=== PATIENT | male | born 1970 | race Caucasian/White ===

== ENCOUNTER 2017-03-05 09:55 | Inpatient (IN) | payer OTHER ==
[~2017-03-05] VITALS: Ht 175.3 cm; Wt 87.8 kg
[2017-03-05] VITALS (28 sets, daily range): BP systolic 96–141; BP diastolic 49–69; PULSE 57–86; RESP 7–22; Ht 175.3 cm; Wt 87.8 kg
--- NOTE | 2017-03-05 00:04 | HP ---
DATE OF ADMISSION: 03/05/2017 HISTORY OF PRESENT ILLNESS: The patient is approximately 46 years of age male who was originally se en in the office for evaluation of low back pain with pain radiating to both of his lower extremitie s with tingling in the left lower extremity. He denied any urinary or bowel dysfunction. The patie nt was diagnosed with L5-S1 grade I spondylolisthesis. Conservative management was offered in the f orm of physical therapy, which the patient has failed. The patient received pain management, which he failed. He ultimately also received epidural injections in the lumbar spine which did not help, and he continued to complain of low back pain with pain radiating to both of his lower extremities. The patient wanted something more definite if could be done. Surgical intervention was discussed w ith the patient in the form of lumbar L5-S1 laminectomy with possible interbody and posterolateral f usion with possible instrumentation. The patient has agreed and wanted to proceed with surgical int ervention. PAST MEDICAL HISTORY: Per chart. SURGICAL HISTORY: Unremarkable. SOCIAL HISTORY: Denies use of drugs, alcohol, tobacco. ALLERGIES: PER CHART. MEDICATIONS: Taken at home per chart. FAMILY HISTORY: Unremarkable. REVIEW OF SYSTEMS: Additional 10-point review of systems conducted. Pertinent positives stated in HPI, otherwise negative. PHYSICAL EXAMINATION: GENERAL: The patient in bed, awake, alert, oriented, follows commands appropriately. HEENT: Head is atraumatic, normocephalic. Eyes: Sclerae clear, nonicteric. EOMs intact. Pupils equal, reactive. No cyanosis. Mouth: No lesions, no bleeding. NECK: Supple. No thyromegaly, no JVD, no accessory muscle usage. PULMONARY: No dyspnea, no tachypnea. CARDIOVASCULAR: No JVD. No pedal edema. ABDOMEN: Soft without guarding. PERIPHERAL VASCULAR: No edema, no swelling. NEUROLOGIC: He is awake, alert, oriented, follows commands properly. GCS 15. Upper extremity exam ination: He has equal strength in both of his upper extremities as well as the deltoids, biceps, tr iceps, wrist extensors, flexors as well as intrinsic and extrinsic hand muscles. Lower extremity ex amination: Upon flexion, extension of the lumbar spine, the patient develops low back pain. Moving his hips causes him to experience low back pain, and he has equal strength in both sides. No posit carline leg raise noted. Sensation is intact throughout. IMAGING: MRI dated 01/21/2017 of the lumbar spine shows L5-S1 grade I retrolisthesis with left-side d neural foraminal stenosis. RECOMMENDATION: At this point is for patient to undergo surgical intervention. Complications of lucas rgery were discussed with the patient including infection, permanent nerve damage, bleeding, complic ation with anesthesia including stroke, heart attack, even . The patient has agreed and wants to proceed. Preop was performed by the patient's primary physician. The patient has been cleared f or surgical intervention, will be admitted to the hospital thereafter for further care and managemen t. Thank you again for the consultation. The patient was seen and examined, discussed with Dr. Allan . Dictated By: JALIL LORENZANA for SHIRA EVANS/NATALIIA Conf#: [id number] DID#: [id number]
[2017-03-05] MEDS ORDERED: PHEN200C PO (10:28)
[2017-03-05] MEDS ORDERED: GABA300C16 PO (10:29)
[2017-03-05] MEDS ORDERED: IBUP800T25 PO (10:29)
[2017-03-05] MEDS ORDERED: SERT100T PO (10:30)
[2017-03-05] MEDS ORDERED: LEVE10006 PO (10:30)
[2017-03-05] MEDS ORDERED: LISI20TA11 PO (10:31)
[2017-03-05] MEDS ORDERED: ARIP15TA2 PO (10:31)
[2017-03-05] MEDS ORDERED: PRAZ2CAP2 PO (10:32)
[2017-03-05] MEDS ORDERED: ASPI81TA16 PO (10:32)
[2017-03-05] MEDS ORDERED: GELATIN SIZE 100 SPONGE ONE (11:10)
[2017-03-05] MEDS ORDERED: LIDOCAINE 0.5%/EPI (MDV) 50 ML INJ ONE (11:11)
--- NOTE | 2017-03-05 11:11 | HPN ---
Date/Time of Note Date/Time of Note DATE: 03/05/17 TIME: 11:11 Interval H&P Admission Note Pt. seen H&P reviewed: No system changes JALLI BHATIA PA-C March 05, 2017 11:11
[2017-03-05] MEDS ORDERED: THROMBIN 5000 UNIT VIAL ONE (11:12)
[2017-03-05] MEDS ORDERED: POLYMYXIN/BACITRACIN 1L IRRIG ONE (11:16)
--- NOTE | 2017-03-05 11:22 | HPN ---
Date/Time of Note Date/Time of Note DATE: 03/05/17 TIME: 11:22 Interval H&P Admission Note Pt. seen H&P reviewed: No system changes JALIL BHATIA PA-C March 05, 2017 11:22
[2017-03-05] MEDS ORDERED: ROCURONIUM 50 MG INJ ONE (11:25)
[2017-03-05] MEDS ORDERED: PROPOFOL 20 ML ONE (11:25)
[2017-03-05] MEDS ORDERED: NEOSTIGMINE 3 MG/3 ML SYRINGE ONE (11:25)
[2017-03-05] MEDS ORDERED: CEFAZOLIN 1 GM INJ ONE (11:25)
[2017-03-05] MEDS ORDERED: ONDANSETRON 4 MG INJ ONE (11:26)
[2017-03-05] MEDS ORDERED: DEXAMETHASONE 4 MG/ML 1 ML INJ ONE (11:26)
[2017-03-05] MEDS ORDERED: MIDAZOLAM 1 MG/ML 2 ML INJ ONE (11:26)
[2017-03-05] MEDS ORDERED: LIDOCAINE 0.5%/EPI (MDV) 50 ML INJ INJ ONE (12:00)
[2017-03-05] MEDS ORDERED: POLYMYXIN/BACITRACIN 1L IRRIG IRR ONE (12:00)
[2017-03-05] MEDS ORDERED: hydrALAzine 20 MG INJ ONE (12:03)
[2017-03-05] MEDS ORDERED: LABETALOL HCL 20MG INJ ONE (12:26)
[2017-03-05] MEDS ORDERED: THROMBIN 5000 UNIT VIAL TOP ONE (12:41)
[2017-03-05] MEDS ORDERED: hydrALAzine 20 MG INJ IV PRN (13:00)
[2017-03-05] MEDS ORDERED: EPHEDrine SULFATE 50 MG/5 ML SYG IV PRN (13:00)
[2017-03-05] MEDS ORDERED: MIDAZOLAM 1 MG/ML 2 ML INJ IV PRN (13:00)
[2017-03-05] MEDS ORDERED: MEPERIDINE 25 MG INJ IV PRN (13:00)
[2017-03-05] MEDS ORDERED: FENTAnyl 50 MCG/ML VIAL IV PRN ×3 (13:00)
[2017-03-05] MEDS ORDERED: ONDANSETRON 4 MG INJ IV PRN (13:00)
[2017-03-05] MEDS ORDERED: HYDROmorphONE (0.2 MG/ML) 10ML SYG IV PRN ×3 (13:00)
[2017-03-05] MEDS ORDERED: TRIMETHOBENZAMIDE 100 MG/ML VIAL IM PRN (13:00)
[2017-03-05] MEDS ORDERED: DIPHENHYDRAMINE 50 MG INJ IV PRN (13:00)
[2017-03-05] MEDS ORDERED: LABETALOL HCL 20MG INJ IV PRN (13:00)
[2017-03-05 15:06] LABS: ADD UMIC YES; URINE BILIRUBIN (Dip) NEGATIVE (NEGATIVE); URINE BLOOD (Dip) 1+ (NEGATIVE); URINE COLOR LT. YELLOW (YELLOW); URINE GLUCOSE (Dip) NEGATIVE (NEGATIVE); URINE KETONES (Dip) NEGATIVE (NEGATIVE); URINE LEUKOCYTE ESTERASE (Dip) NEGATIVE (NEGATIVE); URINE NITRITE (Dip) NEGATIVE (NEGATIVE); URINE TOTAL PROTEIN (Dip) NEGATIVE (NEGATIVE); URINE UROBILINOGEN (Dip) 0.2 E.U./dL (0.1-1.0)
[2017-03-05 15:26] LABS: URINE RBCS 0-2 /HPF (0)
[2017-03-05] MEDS: morphine 2 MG INJ IV PRN ×2 (17:13→20:31)
[2017-03-05] MEDS: NICOTINE (21 MG/24 HR) PATCH TRANSDERM SCH (18:01)
[2017-03-05] MEDS: CEFAZOLIN 1 GM/50 ML (PMX) 50 ML IVPB SCH (18:01)
[2017-03-05] MEDS: HYDROCODONE/APAP (10/325) TAB PO PRN ×2 (18:38→22:34)
[2017-03-05] MEDS: ONDANSETRON 4 MG INJ IV PRN (18:46)
[2017-03-05] MEDS ORDERED: IBUPROFEN 800 MG TAB PO PRN (19:30)
[2017-03-05] MEDS: GABAPENTIN 300 MG CAP PO SCH (20:33)
[2017-03-05] MEDS: SERTRALINE 100 MG TAB PO SCH (20:33)
[2017-03-05] MEDS: LEVETIRACETAM 500 MG TAB PO SCH (20:33)
[2017-03-05] MEDS: PRAZOSIN 1 MG CAP PO SCH (21:12)
[2017-03-05] MEDS: PHENYTOIN 100 MG CAP PO SCH (21:13)
[2017-03-06] MEDS: DEXTROSE 5%-LR 1,000 ML IV SCH ×2 (00:33→13:20)
[2017-03-06] MEDS: morphine 2 MG INJ IV PRN ×6 (00:34→23:43)
[2017-03-06] MEDS: CEFAZOLIN 1 GM/50 ML (PMX) 50 ML IVPB SCH ×2 (01:54→08:39)
--- NOTE | 2017-03-06 03:32 | HP ---
DATE OF ADMISSION: 03/05/2017 CHIEF COMPLAINT AND HISTORY OF PRESENT ILLNESS: The patient is a 46-year-old gentleman with a histo ry of schizoaffective disorder and seizure disorder who had been seen by Dr. Allan as an outpatien t because of lower back pain radiating to both lower extremities. The patient also has tingling in the left lower extremity. The patient underwent MRI of the LS spine which revealed L5-S1 grade I la teral listhesis and left-sided neural foraminal stenosis. The patient prior to surgery did not have any bladder or bowel incontinence or any motor weakness. The patient underwent [facility] physical therapy, but did not have any significant improvement in his symptom, and therefore the decision was made to do surgical intervention. The patient was brought into hospital today and the patient underwent a L5-S1 laminectomy. The patient does have significant postoperative pain, de nies any chest pain or shortness of breath. No recent breakthrough seizures. No history of fever o r chills. No history of cough, headache, dizziness, syncope. No history of leg edema. The patient , prior to surgery, did not have any bladder or bowel incontinence or any motor weakness in any extr emity. PAST SURGICAL HISTORY: None. ALLERGIES: NONE. SOCIAL HISTORY: The patient smokes 2.5 packs of cigarettes per day. No significant alcohol abuse. PHYSICAL EXAMINATION: GENERAL: The patient is conscious, awake and alert. VITAL SIGNS: Temperature 97.8, pulse 79, respiration 18, blood pressure 120/65, O2 saturation 98% o n 2 liters nasal cannula. HEENT: No eye discharge or redness. Extraocular movements intact. Oropharynx clear. NECK: No mass. CHEST: Fairly clear. CARDIOVASCULAR: S1, S2 normal. No murmur. ABDOMEN: Soft, nondistended, nontender. Bowel sounds present. EXTREMITIES: No leg edema. NEUROLOGIC: The patient is awake, alert with no focal neurological deficit, although the exam was l imited due to recent surgery. IMPRESSION: 1. L5-S1 grade I retrolisthesis with left-sided neural foraminal stenosis status post laminectomy. 2. Schizoaffective disorder. 3. Seizure disorder. PLAN: The patient will be continued on Dilantin and Keppra for his seizure and will continue Zyprex a and multiple psych medication as he had been taking at home including Zoloft. Postop surgical car e as per Dr. Allan. Will continue SCD for DVT prophylaxis. The patient was taking aspirin prior to surgery, will hold off for now. The patient will undergo PT evaluation in the morning. Further recommendation will depend on patient's hospital course. Dictated By: MANUEL BARCENAS/NATALIIA Conf#: [id number] DID#: [id number]
[2017-03-06 04:55] LABS: ADD SCAN DIFF NO
[2017-03-06 04:58] LABS: BASOPHILS % 0.2 % (0.0-2.0); EOSINOPHILS % 0.1 % (0.0-7.0); HEMATOCRIT 34.5 % (42.0-52.0); HEMOGLOBIN 12.1 g/dl (14.0-18.0); LYMPHOCYTES # 1.9 10^3/ul (0.8-2.9); LYMPHOCYTES % 10.9 % (15.0-51.0); MEAN CORPUSCULAR HEMOGLOBIN 34.1 pg (29.0-33.0); MEAN CORPUSCULAR HGB CONC 35.1 g/dl (32.0-37.0); MEAN CORPUSCULAR VOLUME 97.2 fl (82.0-101.0); MONOCYTE # 1.1 10^3/ul (0.3-0.9); NEUTROPHIL # 14.7 10^3/ul (1.6-7.5); NEUTROPHILS % 82.4 % (39.0-77.0); PLATELET COUNT 196 10^3/UL (140-415); RED BLOOD COUNT 3.55 10^6/ul (4.70-6.10); RED CELL DISTRIBUTION WIDTH 11.9 % (11.5-14.5); WHITE BLOOD COUNT 17.8 10^3/ul (4.8-10.8)
[2017-03-06 05:30] LABS: ALBUMIN 3.4 g/dl (3.3-4.9); POTASSIUM 3.9 mmol/L (3.5-5.1)
[2017-03-06 05:32] LABS: CREATININE 0.84 mg/dl (0.61-1.24)
[2017-03-06 05:33] LABS: ALBUMIN/GLOBULIN RATIO 1.3; BILIRUBIN,INDIRECT 0.2 mg/dl (0-1.1); BILIRUBIN,TOTAL 0.2 mg/dl (0.2-1.3)
[2017-03-06 05:34] VITALS: BP 111/53; PULSE 60; RESP 18
[2017-03-06 05:34] LABS: CALCIUM 8.7 mg/dl (8.4-10.2)
[2017-03-06] MEDS: GABAPENTIN 300 MG CAP PO SCH ×2 (08:33→20:13)
[2017-03-06] MEDS: ARIPIPRAZOLE 5 MG TAB PO SCH (08:33)
[2017-03-06] MEDS: PHENYTOIN 100 MG CAP PO SCH ×2 (08:34→20:13)
[2017-03-06] MEDS: NICOTINE (21 MG/24 HR) PATCH TRANSDERM SCH (08:34)
[2017-03-06] MEDS: LEVETIRACETAM 500 MG TAB PO SCH ×2 (08:34→20:13)
[2017-03-06] MEDS: LISINOPRIL 20 MG TAB PO SCH (08:36)
--- NOTE | 2017-03-06 11:03 | RADRPT ---
PROCEDURE: Intraoperative imaging of the lumbar spine with fluoroscopy. CLINICAL INDICATION: Back pain. Intraoperative. TECHNIQUE: 6 images of the lumbar spine were obtained in the operating room with an image intensif ier. No radiologist was in attendance. 19.5 seconds of fluoroscopy time was used. COMPARISON: No prior study is available for comparison. FINDINGS: For the purposes of this report, the last apparent true disc level is considered to be L5-S1. Based on this, images demonstrate posterior fusion with pedicle screws and connecting rods at L5 and S1. IMPRESSION: 1. Intraoperative imaging of the lumbar spine. RPTAT: QQ .Nolan Pappas MD, MD Date Time Electronically viewed and signed by .Nolan Pappas MD, on 03/06/2017 11:03 .R/
[2017-03-06] MEDS: HYDROCODONE/APAP (10/325) TAB PO PRN (11:49)
--- NOTE | 2017-03-06 12:03 | PN ---
DATE: 03/06/2017 SUBJECTIVE: Follow up on surgery for L5-S1 grade I retrolisthesis, with left-sided neural foraminal stenosis, schizoaffective affective disorder and seizure disorder. Patient denied any chest pain. Postoperative pain continues. Will increase the patient's [place] to 1 to 2 q.4 p.r.n. The patient d enied any chest pain or shortness of breath. PHYSICAL EXAMINATION: GENERAL: The patient is conscious, awake, alert. VITAL SIGNS: Temperature 97.9, pulse 60, respirations 18, blood pressure 111/53, O2 saturation 96% on 2 liters nasal cannula. HEENT: No eye discharge or redness. Nose and ears normal. NECK: No mass, no JVD. CHEST: Fairly clear. CARDIOVASCULAR: S1, S2 normal. No murmur. ABDOMEN: Soft, nondistended, nontender. EXTREMITIES: No leg edema. Pedal pulses are palpable. SKIN: Without rash. LABORATORY: WBC 17.8, hemoglobin 12.1, platelets 106. Chemistry unremarkable. PLAN: Will continue the current medications, including Dilantin and Keppra, for seizures and all of the psych medications. Will do follow up labs in the morning. Dictated By: MANUEL BARCENAS/NATALIIA Conf#: [id number] DID#: [id number]
--- NOTE | 2017-03-06 14:46 | PN ---
Date/Time of Note Date/Time of Note DATE: 03/06/17 TIME: 14:45 Assessment/Plan Lines/Catheters IV Catheter Type (from Nrs): Peripheral IV Echeverria in Place (from Nrs): Yes Assessment/Plan Assessment/Plan POD1 ALERT MOVES ALL DRAIN FXNAL CONT WITH DRAIN PT AND OT Exam/Review of Systems Vital Signs Vitals Vital Signs Date Time Temp Pulse Resp B/P Pulse Ox O2 Delivery O2 Flow Rate FiO2 03/06/17 05:34 97.9 60 18 111/53 96 Nasal Cannula 2.0 Intake and Output 03/05/17 03/05/17 03/06/17 15:00 23:00 07:00 Intake Total 2620 ml 290 ml 1050 ml Output Total 650 ml 750 ml 4660 ml Balance 1970 ml -460 ml -3610 ml Results Result Diagram: 03/06/17 0415 03/06/17 0415 SHIRA PATTON MD March 06, 2017 14:46
[2017-03-06 19:00] VITALS: BP 111/51; RESP 18
[2017-03-06] MEDS: SERTRALINE 100 MG TAB PO SCH (20:13)
[2017-03-06] MEDS: PRAZOSIN 1 MG CAP PO SCH (20:16)
[2017-03-06] MEDS: HYDROCODONE/APAP (5/325) TAB PO PRN (20:59)
[2017-03-07] MEDS: HYDROCODONE/APAP (5/325) TAB PO PRN ×5 (05:11→22:33)
[2017-03-07 05:44] LABS: ADD SCAN DIFF NO
[2017-03-07 05:54] LABS: BASOPHILS % 0.3 % (0.0-2.0); EOSINOPHILS # 0.1 10^3/ul (0.0-0.5); EOSINOPHILS % 0.6 % (0.0-7.0); HEMATOCRIT 36.2 % (42.0-52.0); HEMOGLOBIN 12.1 g/dl (14.0-18.0); LYMPHOCYTES # 2.2 10^3/ul (0.8-2.9); LYMPHOCYTES % 15.6 % (15.0-51.0); MEAN CORPUSCULAR HEMOGLOBIN 32.9 pg (29.0-33.0); MEAN CORPUSCULAR HGB CONC 33.4 g/dl (32.0-37.0); MEAN CORPUSCULAR VOLUME 98.4 fl (82.0-101.0); MEAN PLATELET VOLUME 11.3 fl (7.4-10.4); MONOCYTE # 1.3 10^3/ul (0.3-0.9); MONOCYTES % 9.1 % (0.0-11.0); NEUTROPHIL # 10.5 10^3/ul (1.6-7.5); PLATELET COUNT 172 10^3/UL (140-415); RED BLOOD COUNT 3.68 10^6/ul (4.70-6.10); RED CELL DISTRIBUTION WIDTH 11.9 % (11.5-14.5); WHITE BLOOD COUNT 14.1 10^3/ul (4.8-10.8)
[2017-03-07 07:27] VITALS: BP 118/59; RESP 19
[2017-03-07 08:00] VITALS: BP 109/52; RESP 20
[2017-03-07] MEDS: GABAPENTIN 300 MG CAP PO SCH ×2 (08:53→20:22)
[2017-03-07] MEDS: NICOTINE (21 MG/24 HR) PATCH TRANSDERM SCH (08:53)
[2017-03-07] MEDS: LEVETIRACETAM 500 MG TAB PO SCH ×2 (08:53→20:21)
[2017-03-07] MEDS: ARIPIPRAZOLE 5 MG TAB PO SCH (08:53)
[2017-03-07] MEDS: PHENYTOIN 100 MG CAP PO SCH ×2 (08:53→20:22)
[2017-03-07] MEDS: LISINOPRIL 20 MG TAB PO SCH (08:54)
[2017-03-07] MEDS: morphine 2 MG INJ IV PRN (12:22)
--- NOTE | 2017-03-07 16:00 | PN ---
Date/Time of Note Date/Time of Note DATE: 03/07/17 TIME: 15:55 Assessment/Plan VTE Prophylaxis VTE Prophylaxis Intervention: SCD's Lines/Catheters IV Catheter Type (from Nrsg): Saline Lock Urinary Cath still in place: Yes Reason Cath still needed: urinary retention Assessment/Plan Assessment/Plan 1. L5-S1 grade I retrolisthesis with left-sided neural foraminal stenosis status post laminectomy. Continue to follow-up surgical recommendation. Rosie as needed for pain. Continue physical therapy. 2. Schizoaffective disorder. 3. Seizure disorder. Continue Keppra. 4. Hypertension continue lisinopril. Further recommendations based on clinical course. Plan of care discussed with Dr. Cho. Subjective 24 Hr Interval Summary Free Text/Dictation Patient's complains of back pain, incision is dry clean and intact with a drain with serous fluid, patient was able to walk with physical therapy in the hallway, remains afebrile. Exam/Review of Systems Vital Signs Vitals Vital Signs Date Time Temp Pulse Resp B/P Pulse Ox O2 Delivery O2 Flow Rate FiO2 03/07/17 08:00 98.6 70 20 109/52 95 03/06/17 05:34 Nasal Cannula 2.0 Intake and Output 03/06/17 03/06/17 03/07/17 15:00 23:00 07:00 Intake Total 610 ml 1740 ml 1200 ml Output Total 3600 ml 1600 ml Balance 610 ml -1860 ml -400 ml Exam Constitutional: alert, oriented Psych: no complaints Head: atraumatic, normocephalic Eyes: nl conjunctiva ENMT: nl external ears & nose Neck: non-tender, supple Respiratory: clear to auscultation, normal air movement Cardiovascular: nl pulses, regular rate and rhythm Gastrointestinal: non-tender, soft Musculoskeletal: nl extremities to inspection, other (Status post surgery with lower back surgical incision was dry clean and intact dressing and drain) Extremities: normal pulses Neurological: UND[employer]TER [employer] II-XII intact Skin: nl turgor Lymph: nl lymph nodes Results Result Diagram: 03/07/17 0450 03/06/17 0415 Results 24 hrs Laboratory Tests Test 03/07/17 04:50 White Blood Count 14.1 #H Red Blood Count 3.68 L Hemoglobin 12.1 L Hematocrit 36.2 L Mean Corpuscular Volume 98.4 Mean Corpuscular Hemoglobin 32.9 Mean Corpuscular Hemoglobin Concent 33.4 Red Cell Distribution Width 11.9 Platelet Count 172 Mean Platelet Volume 11.3 H Neutrophils % 74.0 Lymphocytes % 15.6 Monocytes % 9.1 Eosinophils % 0.6 Basophils % 0.3 Nucleated Red Blood Cells % 0.0 Neutrophils # 10.5 H Lymphocytes # 2.2 Monocytes # 1.3 H Eosinophils # 0.1 Basophils # 0.0 Nucleated Red Blood Cells # 0.0 Medications Medications Current Medications Ondansetron HCl (Zofran Inj) 4 mg Q6H PRN IV NAUSEA AND/OR VOMITING Last administered on 03/05/17 18:46; Admin Dose 4 MG; Start 03/05/17 at 11:30 Acetaminophen/ Hydrocodone Bitart (Rosie (10325)) 1 tab Q4H PRN PO PAIN Last administered on 03/06/17 11:49; Admin Dose 1 TAB; Start 03/05/17 at 11:30 Morphine Sulfate (morphine) 2 mg Q3H PRN IV severe pain Last administered on 12:22; Admin Dose 2 MG; Start 03/05/17 at 11:30 Nicotine (Nicoderm 21 Mg/ 24hr) 1 patch DAILY TRANSDERM Last administered on 08:53; Admin Dose 1 PATCH; Start 03/05/17 at 17:30 Aripiprazole (Abilify) 15 mg DAILY PO Last administered on 03/07/17 08:53; Admin Dose 15 MG; Start 03/06/17 at 09:00 Gabapentin (Neurontin) 300 mg BID PO Last administered on 03/07/17 08:53; Admin Dose 300 MG; Start 03/05/17 at 21:00 Ibuprofen (Motrin) 800 mg BID PRN PO PAIN; Start 03/05/17 at 19:30 Levetiracetam (Keppra) 2,000 mg BID PO Last administered on 03/07/17 08:53; Admin Dose 2,000 MG; Start 03/05/17 at 21:00 Lisinopril (Zestril) 20 mg DAILY PO ; Start 03/06/17 at 09:00 Phenytoin (Dilantin) 200 mg BID PO Last administered on 03/07/17 08:53; Admin Dose 200 MG; Start 03/05/17 at 21:00 Prazosin HCl (Minipres) 2 mg HS PO Last administered on 03/06/17 20:16; Admin Dose 2 MG; Start 03/05/17 at 21:00 Sertraline HCl (Zoloft) 100 mg QHS PO Last administered on 03/06/17 20:13; Admin Dose 100 MG; Start 03/05/17 at 21:00 Acetaminophen/ Hydrocodone Bitart (Rosie (5/325)) 2 tab Q4H PRN PO MODERATE PAIN LEVEL 4-6 Last administered on 03/07/17 14:56; Admin Dose 2 TAB; Start 03/06 at 12:00 [facility]OTT March 07, 2017 16:00
[2017-03-07 19:59] VITALS: BP 130/72; PULSE 74; RESP 18
[2017-03-07] MEDS: SERTRALINE 100 MG TAB PO SCH (20:21)
[2017-03-07] MEDS: PRAZOSIN 1 MG CAP PO SCH (20:22)
[2017-03-07] MEDS: ONDANSETRON 4 MG INJ IV PRN (20:38)
[2017-03-08] MEDS: HYDROCODONE/APAP (5/325) TAB PO PRN ×4 (04:51→22:25)
[2017-03-08 05:07] LABS: ADD SCAN DIFF NO
[2017-03-08 05:13] LABS: BASOPHILS % 0.2 % (0.0-2.0); EOSINOPHILS # 0.1 10^3/ul (0.0-0.5); EOSINOPHILS % 0.8 % (0.0-7.0); HEMATOCRIT 35.9 % (42.0-52.0); HEMOGLOBIN 12.3 g/dl (14.0-18.0); LYMPHOCYTES # 1.9 10^3/ul (0.8-2.9); LYMPHOCYTES % 14.7 % (15.0-51.0); MEAN CORPUSCULAR HEMOGLOBIN 33.2 pg (29.0-33.0); MEAN CORPUSCULAR HGB CONC 34.3 g/dl (32.0-37.0); MEAN CORPUSCULAR VOLUME 96.8 fl (82.0-101.0); MEAN PLATELET VOLUME 10.7 fl (7.4-10.4); MONOCYTE # 0.9 10^3/ul (0.3-0.9); NEUTROPHIL # 10.1 10^3/ul (1.6-7.5); NEUTROPHILS % 76.7 % (39.0-77.0); PLATELET COUNT 196 10^3/UL (140-415); RED BLOOD COUNT 3.71 10^6/ul (4.70-6.10); RED CELL DISTRIBUTION WIDTH 11.5 % (11.5-14.5); WHITE BLOOD COUNT 13.2 10^3/ul (4.8-10.8)
[2017-03-08 05:37] LABS: POTASSIUM 3.6 mmol/L (3.5-5.1)
[2017-03-08 05:40] LABS: CREATININE 0.82 mg/dl (0.61-1.24)
[2017-03-08 05:41] LABS: CALCIUM 8.7 mg/dl (8.4-10.2)
[2017-03-08 07:59] VITALS: BP 119/61; RESP 18
[2017-03-08] MEDS: morphine 2 MG INJ IV PRN (08:22)
[2017-03-08] MEDS: PHENYTOIN 100 MG CAP PO SCH ×2 (08:23→20:22)
[2017-03-08] MEDS: ARIPIPRAZOLE 5 MG TAB PO SCH (08:23)
[2017-03-08] MEDS: NICOTINE (21 MG/24 HR) PATCH TRANSDERM SCH (08:24)
[2017-03-08] MEDS: LISINOPRIL 20 MG TAB PO SCH (08:24)
[2017-03-08] MEDS: GABAPENTIN 300 MG CAP PO SCH ×2 (08:24→20:22)
[2017-03-08] MEDS: LEVETIRACETAM 500 MG TAB PO SCH ×2 (08:24→20:21)
[2017-03-08] MEDS: ONDANSETRON 4 MG INJ IV PRN ×2 (09:17→18:18)
--- NOTE | 2017-03-08 11:54 | PN ---
Date/Time of Note Date/Time of Note DATE: 03/08/17 TIME: 11:49 Assessment/Plan VTE Prophylaxis VTE Prophylaxis Intervention: other Lines/Catheters IV Catheter Type (from Nrsg): Saline Lock Urinary Cath still in place: Yes Reason Cath still needed: urinary retention Assessment/Plan Assessment/Plan - constipation- bowel regimen - Acute nausea- none at present - L5-S1 grade I retrolisthesis with left-sided neural foraminal stenosis status post laminectomy. - per neurosurgery - [place] as needed for pain. Continue physical therapy. - Schizoaffective disorder. -Seizure disorder. Continue Keppra. - seizure precautions - Hypertension continue lisinopril. Further recommendations based on clinical course. Plan of care discussed with Dr. Cho. Subjective 24 Hr Interval Summary Free Text/Dictation c/o back pain, incision site- DDI , a drain with serous fluid, remains afebrile , dw staff. Eyes: no complaints ENT: no complaints Respiratory: no complaints Cardiovascular: no complaints Gastrointestinal: no complaints Genitourinary: no complaints Musculoskeletal: back pain Skin: no complaints Neurologic: no complaints Endocrine: no complaints Lymphatic: no complaints Psychological: no complaints Exam/Review of Systems Vital Signs Vitals Vital Signs Date Time Temp Pulse Resp B/P Pulse Ox O2 Delivery O2 Flow Rate FiO2 03/08/17 07:59 97.6 71 18 119/61 94 03/07/17 19:59 Room Air 03/06/17 05:34 2.0 Intake and Output 03/07/17 03/07/17 03/08/17 15:00 23:00 07:00 Intake Total 1400 ml 1800 ml Output Total 1210 ml 1703 ml Balance 190 ml 97 ml Exam Constitutional: alert, oriented Psych: no complaints Head: atraumatic Eyes: EOMI ENMT: nl external ears & nose Neck: non-tender Respiratory: clear to auscultation Cardiovascular: regular rate and rhythm Gastrointestinal: non-tender, soft Musculoskeletal: nl extremities to inspection Extremities: normal pulses Neurological: nl mental status, nl speech Results Result Diagram: 03/08/17 0430 03/08/17 0430 Results 24 hrs Laboratory Tests Test 03/08/17 04:30 White Blood Count 13.2 H Red Blood Count 3.71 L Hemoglobin 12.3 L Hematocrit 35.9 L Mean Corpuscular Volume 96.8 Mean Corpuscular Hemoglobin 33.2 H Mean Corpuscular Hemoglobin Concent 34.3 Red Cell Distribution Width 11.5 Platelet Count 196 Mean Platelet Volume 10.7 H Neutrophils % 76.7 Lymphocytes % 14.7 L Monocytes % 7.0 Eosinophils % 0.8 Basophils % 0.2 Nucleated Red Blood Cells % 0.0 Neutrophils # 10.1 H Lymphocytes # 1.9 Monocytes # 0.9 Eosinophils # 0.1 Basophils # 0.0 Nucleated Red Blood Cells # 0.0 Sodium Level 138 Potassium Level 3.6 Chloride Level 95 L Carbon Dioxide Level 32 H Anion Gap 15 Blood Urea Nitrogen 17 Creatinine 0.82 Glucose Level 103 Calcium Level 8.7 Medications Medications Current Medications Ondansetron HCl (Zofran Inj) 4 mg Q6H PRN IV NAUSEA AND/OR VOMITING Last administered on 03/08/17 09:17; Admin Dose 4 MG; Start 03/05/17 at 11:30 Acetaminophen/ Hydrocodone Bitart ([place] (10/325)) 1 tab Q4H PRN PO PAIN Last administered on 03/06/17 11:49; Admin Dose 1 TAB; Start 03/05/17 at 11:30 Morphine Sulfate (morphine) 2 mg Q3H PRN IV severe pain Last administered on 08:22; Admin Dose 2 MG; Start 03/05/17 at 11:30 Nicotine (Nicoderm 21 Mg/ 24hr) 1 patch DAILY TRANSDERM Last administered on 08:24; Admin Dose 1 PATCH; Start 03/05/17 at 17:30 Aripiprazole (Abilify) 15 mg DAILY PO Last administered on 03/08/17 08:23; Admin Dose 15 MG; Start 03/06/17 at 09:00 Gabapentin (Neurontin) 300 mg BID PO Last administered on 03/08/17 08:24; Admin Dose 300 MG; Start 03/05/17 at 21:00 Ibuprofen (Motrin) 800 mg BID PRN PO PAIN; Start 03/05/17 at 19:30 Levetiracetam (Keppra) 2,000 mg BID PO Last administered on 03/08/17 08:24; Admin Dose 2,000 MG; Start 03/05/17 at 21:00 Lisinopril (Zestril) 20 mg DAILY PO Last administered on 03/08/17 08:24; Admin Dose 20 MG; Start 03/06/17 at 09:00 Phenytoin (Dilantin) 200 mg BID PO Last administered on 03/08/17 08:23; Admin Dose 200 MG; Start 03/05/17 at 21:00 Prazosin HCl (Minipres) 2 mg HS PO Last administered on 03/07/17 20:22; Admin Dose 2 MG; Start 03/05/17 at 21:00 Sertraline HCl (Zoloft) 100 mg QHS PO Last administered on 03/07/17 20:21; Admin Dose 100 MG; Start 03/05/17 at 21:00 Acetaminophen/ Hydrocodone Bitart ([place] (5/325)) 2 tab Q4H PRN PO MODERATE PAIN LEVEL 4-6 Last administered on 03/08/17 04:51; Admin Dose 2 TAB; Start 03/06 at 12:00 JOSÉ MIGUEL LARA March 08, 2017 11:53
[2017-03-08] MEDS ORDERED: BISACODYL (EC) 5 MG TAB PO PRN (12:00)
[2017-03-08] MEDS: DOCUSATE SODIUM 100 MG CAP PO SCH ×2 (12:01→20:16)
--- NOTE | 2017-03-08 12:24 | PN ---
Date/Time of Note Date/Time of Note DATE: 03/08/17 TIME: 12:24 Assessment/Plan Lines/Catheters IV Catheter Type (from Nrs): Saline Lock Echeverria in Place (from Nrs): Yes Assessment/Plan Assessment/Plan doing better alert moves all dc home am Exam/Review of Systems Vital Signs Vitals Vital Signs Date Time Temp Pulse Resp B/P Pulse Ox O2 Delivery O2 Flow Rate FiO2 03/08/17 07:59 97.6 71 18 119/61 94 03/07/17 19:59 Room Air 03/06/17 05:34 2.0 Intake and Output 03/07/17 03/07/17 03/08/17 15:00 23:00 07:00 Intake Total 1400 ml 1800 ml Output Total 1210 ml 1703 ml Balance 190 ml 97 ml Results Result Diagram: 03/08/17 0430 03/08/17 0430 SHIRA PATTON MD March 08, 2017 12:24
[2017-03-08] MEDS: SERTRALINE 100 MG TAB PO SCH (20:16)
[2017-03-08] MEDS: PRAZOSIN 1 MG CAP PO SCH (20:21)
[2017-03-09] MEDS: HYDROCODONE/APAP (5/325) TAB PO PRN ×4 (02:22→16:39)
[2017-03-09] MEDS: ONDANSETRON 4 MG INJ IV PRN (02:26)
[2017-03-09 07:23] VITALS: BP 104/57; RESP 19
[2017-03-09] MEDS: NICOTINE (21 MG/24 HR) PATCH TRANSDERM SCH (08:44)
[2017-03-09] MEDS: LEVETIRACETAM 500 MG TAB PO SCH (08:44)
[2017-03-09] MEDS: GABAPENTIN 300 MG CAP PO SCH (08:45)
[2017-03-09] MEDS: PHENYTOIN 100 MG CAP PO SCH (08:45)
[2017-03-09 08:46] VITALS: BP 119/65; PULSE 83
[2017-03-09] MEDS: LISINOPRIL 20 MG TAB PO SCH (08:46)
[2017-03-09] MEDS: DOCUSATE SODIUM 100 MG CAP PO SCH (08:46)
[2017-03-09] MEDS: ARIPIPRAZOLE 5 MG TAB PO SCH (08:46)
--- NOTE | 2017-03-09 12:56 | PDOCDIS ---
Discharge Instructions CONDITION Patient Condition: Stable HOME CARE INSTRUCTIONS: Diet Instructions: RegularSpecial Diet: REGULAR ACTIVITY: Activity Restrictions: Slowly Increase Activity Rest between Activity Avoid heavy lifting Do not Drive Do not operate Machinery Do not operate Power Tool Avoid Heavy Housework Bathing Restrictions: ShowerActivity Restrictions Comment: No bending, lifting , twisting back FOLLOW UP/APPOINTMENTS Appointments FU with PMD X 1 week FU with Neurosurgery as recommended. Call 911 or go to the nearest hospital if symptoms worsen. Negro Cho/staff/patient. JOSÉ MIGUEL LARA March 09, 2017 12:56
[2017-03-09] MEDS ORDERED: FAMO-18 PO (13:00)
[2017-03-09] MEDS ORDERED: Hydrocodone/Apap (10/325) PO (13:00)
[2017-03-09] MEDS ORDERED: DOCU-216 PO (13:00)
--- NOTE | 2017-03-09 13:01 | DS ---
Date/Time of Note Date/Time of Note DATE: 03/09/17 TIME: 13:01 Discharge Summary Admission/Discharge Info Admit Date/Time March 05, 2017 at 09:55 Discharge Date/Time Home Meds Active Scripts Famotidine* (Pepcid*) 20 Mg Tablet, 20 MG PO DAILY for 4 Days, #20 TAB Prov:JOSÉ MIGUEL LARA 03/09/17 [Hydrocodone/Apap (10/325)] 1 TAB TAB No Conflict Check, 1 TAB PO Q6H Y for PAIN , #20 Prov:JOSÉ MIGUEL LARA 03/09/17 Docusate Sodium (Dok) 100 Mg Capsule, 100 MG PO BID for 30 Days, CAP Prov:JOSÉ MIGUEL LARA 03/09/17 Reported Medications Prazosin Hcl* (Prazosin Hcl*) 2 Mg Capsule, 2 MG PO HS, CAP 03/05/17 Aspirin (LOW DOSE ASPIRIN EC) 81 Mg Tablet.dr, 81 MG PO DAILY, #30 TAB 03/05/17 Aripiprazole* (Abilify*) 15 Mg Tablet, 15 MG PO DAILY, #30 TAB 03/05/17 Lisinopril* (Lisinopril*) 20 Mg Tablet, 20 MG PO DAILY, #30 TAB 03/05/17 Sertraline Hcl* (Zoloft*) 100 Mg Tablet, 100 MG PO QHS, #30 TAB 03/05/17 Levetiracetam* (Levetiracetam*) 1,000 Mg Tablet, 2000 MG PO BID, TAB 03/05/17 Gabapentin* (Gabapentin*) 300 Mg Capsule, 300 MG PO BID, #60 CAP 03/05/17 Ibuprofen* (Motrin*) 800 Mg Tab, 800 MG PO BID Y for PAIN, TAB 03/05/17 Phenytoin* Sodium Extended (Dilantin*) 200 Mg Capsule, 200 MG PO BID, CAP 03/05/17 JOSÉ MIGUEL LARA March 09, 2017 13:01
--- NOTE | 2017-03-11 10:09 | OPR ---
DATE OF OPERATION: 03/05/2017 PREOPERATIVE DIAGNOSIS: Lumbar grade I spondylolisthesis, lumbar stenosis, lumbar foraminal stenosi s with mechanical low back pain L5 to S1 level. POSTOPERATIVE DIAGNOSIS: Lumbar grade I spondylolisthesis, lumbar stenosis, lumbar foraminal stenos is with mechanical low back pain L5 to S1 level with neural foraminal stenosis and lumbar radiculop athy. PROCEDURE PERFORMED: 1. L5 to S1 posterolateral fusion, CPT 94861. 2. L5 bilateral laminectomy, medial facetectomy and foraminotomy, CPT 57318. 3. S1 bilateral laminectomy, medial facetectomy and foraminotomy, CPT 23703. 4. L5 to S1 posterior segmental instrumentation utilizing [employer] Matrix pedicle screws, CPT 66716. 5. L5 to S1 interbody fusion utilizing lumbar interbody fusion MTF bone provided by [employer], CPT 22 859. SURGEON: Shira Allan MD IT SOFTWARE ENGINEER: SALOMÓN Nixon ANESTHESIA: General endotracheal. COMPLICATIONS OF THE OPERATION: None. ESTIMATED BLOOD LOSS: Less than 200 mL. COUNTS: Needle counts and sponge counts were correct. SPECIMENS: Multiple fragments of the lamina were sent to pathology. INDICATIONS FOR PROCEDURE: Please refer to my consultation. The patient is well known to me. The patient has been seen by me on multiple occasions in the office. He has low back pain, leg pain, ra diation of pain into bilateral lower extremities and difficulty walking and performing normal daily activity. To proceed with lumbar laminectomy, decompression of spinal canal. Risks and benefits of the operation including anesthesia, infection, bleeding, permanent neurological injury and we re explained. The patient agreed to proceed with the operation and signed the consent. PROCEDURE IN DETAIL: The patient was placed in supine position. After adequate general anesthesia was obtained, the patient was turned prone on vertical bolsters. The lumbar region was shaved, prep ped and draped in a normal sterile fashion. Midline incision was made with a #10 blade, was carried past the lumbodorsal fascia at the L5 to S1 interspace. An x-ray confirmed our position. L5 to S1 laminectomy was done until I was able to decompress the L5 and S1 nerve roots distally into the kathi ral foramina. . Following the distal decompression of the L5 to S1 nerve roots, I placed pedicle screws at the level of L5 and S1. These were Matrix pedicle screws provided by [employer]. They were 6.0 x 14 mm screws. Four of them were placed with 55 mm rods that were loaded onto it with a #6 Crosslink. It should be noted that prior to completing torque tightening the pedicle screws, I completely decom pressed the disk space of L5 to S1, decorticated the endplates and placed interbody fusion at leve ls L5 and S1 bilaterally to achieve interbody fusion for stabilization of the anterior column of the lumbar spine at the L5 to S1 level. These were 11 mm grafts, a total of 2 of them were used. Following this, 10 mL of putty DBX was mixed with the bone that was harvested during the case. Ever ything with morselized and was placed as an onlay graft at the level of L5 to S1, achieving posterol ateral fusion at the level of L5 to S1. The area was irrigated with bacitracin and saline solution. A medium-sized Hemovac drain was placed in the wound exiting from the skin through a separate stab incision and secured to the skin with lucas tures. Closure of the wound was done #1 Vicryl for the lumbodorsal fascia. Closure of the subcutan eous tissue, fat and the dermis was done with 2-0 and 3-0 Vicryl interrupted. Steri-Strips were ritchie lied. The patient tolerated the procedure well and was taken to postanesthesia recovery in stable c ondition, following commands, moving all muscle groups in upper and lower extremities. Spinal monit oring showed improvement of signal. Dictated By: SHIRA KWONG/NATALIIA Conf#: [id number] DID#: [id number]
== END 2017-03-09 17:30 | disposition home or self-care (01) | DRG 460 ==
LOC: REC 09:55 → EDSTATUS 13:00 → MS1 17:05
PROVIDERS: ADMIT Internal Medicine; ATTEND Neurological Surgery
PROC: 01NB0ZZ Release Lumbar Nerve, Open Approach (ICD-10-PCS; 2017-03-05)
PROC: 4A11X4G Monitoring of Peripheral Nervous Electrical Activity, Intraoperative, External Approach (ICD-10-PCS; 2017-03-05)
PROC: 0SG30Z1 (ICD-10-PCS; principal; 2017-03-05 11:00)
DX: M48.07 Spinal stenosis, lumbosacral region (principal); I10 Essential (primary) hypertension; M43.17 Spondylolisthesis, lumbosacral region; F20.9 Schizophrenia, unspecified; G40.909 Epilepsy, unspecified, not intractable, without status epilepticus; F17.200 Nicotine dependence, unspecified, uncomplicated; F31.9 Bipolar disorder, unspecified; R00.1 Bradycardia, unspecified
CPT/HCPCS: 72100; 80048; 80053; 81001; 81003; 85025; 86850; 86900; 86901; 87086; 97116; 97161; 97530; C1713; C1762; J0360; J0690; J1100; J1170; J1200; J2175; J2250; J2270; J2405; J2710; J3010; J7121